=== PATIENT | female | born 2000 | race Caucasian/White ===

== ENCOUNTER 2019-01-02 00:53 | Emergency (ER) | payer OTHER ==
[~2019-01-02] VITALS: Ht 175.3 cm; Wt 143.2 kg
[2019-01-02 00:57] VITALS: BP 137/98; TEMP 97.5
[2019-01-02 01:40] VITALS: PULSE 89
== END 2019-01-02 01:40 | disposition home or self-care (01) ==
LOC: COL.ER 00:53
DX: S90.122A Contusion of left lesser toe(s) without damage to nail, initial encounter (principal); F32.9 Major depressive disorder, single episode, unspecified; F41.9 Anxiety disorder, unspecified; Z88.2 Allergy status to sulfonamides; W22.8XXA Striking against or struck by other objects, initial encounter; Y92.009 Unspecified place in unspecified non-institutional (private) residence as the place of occurrence of the external cause

== ENCOUNTER 2019-01-03 01:43 | Emergency (ER) | payer OTHER ==
[~2019-01-03] VITALS: Ht 175.3 cm; Wt 143.2 kg
[2019-01-03 01:49] VITALS: BP 143/84; TEMP 99
[2019-01-03 02:21] VITALS: PULSE 84
== END 2019-01-03 02:18 | disposition home or self-care (01) ==
LOC: COL.ER 01:43
DX: S90.122A Contusion of left lesser toe(s) without damage to nail, initial encounter (principal); W22.8XXA Striking against or struck by other objects, initial encounter; Y92.009 Unspecified place in unspecified non-institutional (private) residence as the place of occurrence of the external cause

== ENCOUNTER → 2019-01-15 | Outpatient (CLI) | payer OTHER | LOC: COL.RAD 12:51 | DX: R19.8 Other specified symptoms and signs involving the digestive system and abdomen (principal) | CPT/HCPCS: Q9967 ==

== ENCOUNTER → 2019-01-22 | Outpatient (CLI) | payer OTHER | LOC: COL.RAD 10:04 | DX: R51 Headache (principal) ==

== ENCOUNTER 2019-03-11 10:23 | Day surgery (SDC) | payer OTHER ==
[~2019-03-11] VITALS: Ht 175.3 cm; Wt 144.0 kg
[2019-03-11 12:30] VITALS: BP 133/86; PULSE 79; TEMP 98.4
[2019-03-11] MEDS ORDERED: LEXAPRO 10MG10 MG PO (12:42)
[2019-03-11] MEDS ORDERED: SPRINTEC 35 MCG1 TAB PO (12:42)
[2019-03-11] MEDS ORDERED: WELLBUTRIN 75MG75 MG PO (12:43)
[2019-03-11] MEDS ORDERED: DESYREL 50MG50 MG PO (12:48)
[2019-03-11] MEDS ORDERED: PERCOCET 325 MG1 TA2 PO (14:49)
[2019-03-11 15:01] VITALS: TEMP 97.6
[2019-03-11 15:45] VITALS: BP 118/59; PULSE 79
[2019-03-11 16:00] VITALS: BP 122/58; PULSE 85
[2019-03-11 16:15] VITALS: BP 123/60; PULSE 80
[2019-03-11 16:30] VITALS: BP 124/54; PULSE 77
--- NOTE | 2019-03-11 17:09 | NUR ---
PT REQUESTS WATER, SPRITE, CHOCOLATE PUDDING. PT STATES, 'MORE DISCOMFORT THAN PAIN". VSS, FRIEND AT BEDSIDE. DENIES NAUSEA AT THIS TIME. WILL MONITOR PROGRESS.
--- NOTE | 2019-03-11 17:14 | NUR ---
PT A/OX3, SLEEPY. TOLERATING FOOD AND FLUIDS. STATED, 'FEELING MORE PAIN', RATES AT 6 ON 0-10 SCALE. OFFERED PRN PAIN MEDICATIONS. PT DENIES NEED. #20 REMOVED FROM RIGHT HAND, PT TOLERATED WELL. SIGNED DC INSTRUCTIONS. ENCOURAGED PT TO TAKE PRESCRIBED PAIN MEDICATION SOON IT IS FILLED. PT TAKEN OUT PER WC. FRIEND DRIVING.
--- NOTE | 2019-03-11 17:34 | NUR ---
1530 PT RETURNED FROM PACU PER CART. PT ALERT AND ORIENTATED, SLEEPY. VS STABLE. [id number] ON RA. T97.6 ORAL. LUNGS CLEAR, BOWEL SOUNDS PRESENT, HRR. DENIES NAUSEA AND PAIN AT THIS TIME, WILL MONITOR PROGRESS.
== END 2019-03-11 17:40 | disposition home or self-care (01) ==
LOC: SDCO 10:23
DX: Q64.4 Malformation of urachus (principal); F41.9 Anxiety disorder, unspecified; F32.9 Major depressive disorder, single episode, unspecified; F90.9 Attention-deficit hyperactivity disorder, unspecified type; E28.2 Polycystic ovarian syndrome; F17.210 Nicotine dependence, cigarettes, uncomplicated; L08.82 Omphalitis not of newborn; E66.01 Morbid (severe) obesity due to excess calories; Z80.6 Family history of leukemia; Z80.8 Family history of malignant neoplasm of other organs or systems; Z83.3 Family history of diabetes mellitus; Z82.49 Family history of ischemic heart disease and other diseases of the circulatory system; Z82.5 Family history of asthma and other chronic lower respiratory diseases; Z80.1 Family history of malignant neoplasm of trachea, bronchus and lung; Z88.2 Allergy status to sulfonamides
CPT/HCPCS: J0690; J1100; J1170; J2405; J2704; J3010; J7120

== ENCOUNTER 2019-03-16 22:28 | Emergency (ER) | payer OTHER ==
[~2019-03-16] VITALS: Ht 175.3 cm; Wt 143.2 kg
[~2019-03-16 22:28] MED LIST: DESYREL 50MG50 MG PO; LEXAPRO 10MG10 MG PO; PERCOCET 325 MG1 TA2 PO; SPRINTEC 35 MCG1 TAB PO; WELLBUTRIN 75MG75 MG PO
[2019-03-16 23:22] LABS: COLLECTION METHOD CLEAN CATCH
[2019-03-16 23:27] LABS: MUCOUS Present /lpf; PH 5 (5-8); URINE APPEARANCE Hazy; URINE BACTERIA Rare /hpf; URINE BILIRUBIN Negative (NEGATIVE); URINE BLOOD 1+ (NEGATIVE); URINE COLOR Yellow; URINE GLUCOSE Negative (NEGATIVE); URINE KETONE Negative (NEGATIVE); URINE LEUKOCYTE ESTERASE Negative (NEGATIVE); URINE NITRATE Negative (NEGATIVE); URINE PROTEIN(semi-quant) Negative (NEGATIVE); URINE RBC 0-2 /hpf; URINE UROBILINOGEN Negative (NEGATIVE)
[2019-03-17 00:22] LABS: BASO # 0.1 (0.0-0.2); BASO % 0.5 % (0.0-2.0); EOS # 0.4 (0.0-0.7); EOS % 3.4 % (0-4.0); GRAN # 7.3 (1.4-6.5); GRAN % 62.5 % (42.2-75.2); HEMATOCRIT 42.6 % (35.0-45.0); HEMOGLOBIN 13.8 g/dl (12.0-15.0); LYMPH # 2.9 (1.2-3.4); LYMPH % 25.1 % (20.0-51.0); MEAN CELL VOLUME 88 fl (80.0-95.0); MEAN CORPUSCULAR HEMOGLOBIN 29 pg (26.0-32.0); MEAN CORPUSCULAR HGB CONC 32 g/dl (33.0-37.0); MEAN PLATELET VOLUME 10.1 fl (7.4-10.4); MONO # 0.9 (0.1-0.6); PLATELET COUNT 361 K/mm3 (130-400); RED BLOOD COUNT 4.82 M/mm3 (4.10-5.30)
[2019-03-17 02:22] LABS: ALBUMIN 3.7 gm/dL (3.5-5.0); BILIRUBIN,TOTAL 0.1 mg/dL (0.0-1.0); CALCIUM 8.7 mg/dL (8.4-10.2); CREATININE, serum 0.53 (0.52-1.25); TOTAL PROTEIN 6.5 gm/dL (6.4-8.2)
[2019-03-17 02:57] VITALS: BP 129/83; PULSE 72; TEMP 98.2
== END 2019-03-17 02:50 | disposition home or self-care (01) ==
LOC: COL.ER 22:28
PROVIDERS: Emergency Medicine
DX: R10.32 Left lower quadrant pain (principal); G89.18 Other acute postprocedural pain
CPT/HCPCS: J2405; J3010; J7030; Q9967